=== PATIENT | male | born 1985 | race African-American/Black ===

== ENCOUNTER 2016-07-24 12:14 | Emergency (ER) | payer MEDICAID | END 2016-07-24 13:59 | disposition home or self-care (01) | LOC: D.ER 12:14 | DX: S05.01XA Injury of conjunctiva and corneal abrasion without foreign body, right eye, initial encounter (principal); X58.XXXA Exposure to other specified factors, initial encounter; Y93.89 Activity, other specified; Y92.019 Unspecified place in single-family (private) house as the place of occurrence of the external cause ==

== ENCOUNTER 2019-03-22 21:24 | Emergency (ER) | payer MEDICAID ==
[~2019-03-22] VITALS: Ht 177.8 cm; Wt 90.9 kg
[2019-03-22 21:28] VITALS: Ht 177.8 cm; Wt 90.9 kg
[2019-03-22] MEDS ORDERED: CYCLOGYL LEFT EYE (21:29)
[2019-03-22] MEDS ORDERED: CILOXAN5 ML LEFT EYE (21:29)
[2019-03-22] MEDS ORDERED: TYLENOL #4 W/CO1 TAB PO (22:10)
[2019-03-22] MEDS ORDERED: ERYTHROMYCIN OPT1 GM LEFT EYE (22:10)
[2019-03-22 22:48] VITALS: BP 142/90
== END 2019-03-22 22:49 | disposition home or self-care (01) ==
LOC: D.ER 21:24
DX: S05.02XA Injury of conjunctiva and corneal abrasion without foreign body, left eye, initial encounter (principal); X58.XXXA Exposure to other specified factors, initial encounter

== ENCOUNTER 2019-07-15 00:38 | Emergency (ER) | payer BC ==
[~2019-07-15] VITALS: Ht 177.8 cm; Wt 90.0 kg
[~2019-07-15 00:38] MED LIST: CILOXAN5 ML LEFT EYE; CYCLOGYL LEFT EYE; ERYTHROMYCIN OPT1 GM LEFT EYE; TYLENOL #4 W/CO1 TAB PO
[2019-07-15 00:39] VITALS: Ht 177.8 cm; Wt 90.0 kg
[2019-07-15 02:04] VITALS: BP 132/78
== END 2019-07-15 02:04 | disposition home or self-care (01) ==
LOC: D.ER 00:38
DX: R51 Headache (principal)